=== PATIENT | female | born 1975 | race Caucasian/White ===

== ENCOUNTER 2018-10-31 07:58 | Day surgery (SDC) | payer OTHER ==
[2018-10-29 17:56] VITALS: BMI 53.2
[2018-10-31] VITALS (11 sets, daily range): BP systolic 111–158; BP diastolic 65–78; PULSE 71–82; RESP 13–22; Ht 157.5 cm; Wt 132.0 kg
[~2018-10-31] VITALS: Ht 157.5 cm; Wt 132.0 kg
[~2018-10-31 07:58] MED LIST: CIPROFLOXACIN 400 MG in D5W 200 ML IVPB SCH
[2018-10-31] MEDS ORDERED: ASCO500C7 PO (08:56)
[2018-10-31] MEDS ORDERED: FER325 PO (08:56)
--- NOTE | 2018-10-31 10:47 | HPN ---
Date/Time of Note Date/Time of Note DATE: 10/31/18 TIME: 10:47 Interval H&P Admission Note Pt. seen H&P reviewed: No system changes MINA MAGAÑA Oct 31, 2018 10:47
--- NOTE | 2018-10-31 11:22 | PREAC ---
Date/Time of Note Date/Time of Note DATE: 10/31/18 TIME: 11:20 Anesthesia Eval and Record Evaluation Time Pre-Procedure Interview DATE: 10/31/18 TIME: 11:20 Age 43 Sex female NPO: 8 hrs Preoperative diagnosis Lt ureteral stones Planned procedure Cystoscopy and removal of lt ureteral stent Past Medical History Past Medical History: Includes Cardio: HTN, Dyslipidemia GI: Morbid obesity Surgery & Anesthesia Issues No known issue Meds Anticoagulation: No Beta Hood within 24 hr: No Reason Beta Hood not given: Pt. not on B-Hood Reported Medications Ascorbic Acid* (Vitamin C*) 500 Mg Capsule.sa, 500 MG PO DAILY, CAP 10/31/18 Ferrous Sulfate* (Ferrous Sulfate*) 325 Mg Tabec, 325 MG PO TID, TAB 10/31/18 Meds reviewed: Yes Allergies Coded Allergies: ibuprofen (Verified Allergy, Unknown, 10/31/18) Allergies Reviewed: Yes Labs/Studies Labs Reviewed: Reviewed by anesthesiologist test: Negative Pre-procedure Exam Last vitals Vital Signs Date Temp Pulse Resp B/P (MAP) Pulse Ox O2 O2 Flow FiO2 Time Delivery Rate 10/31/18 98.1 82 16 111/65 95 Room Air 08:55 (80) Airway: Adequate mouth opening, Adequate thyromental dist Mallampati: Mallampati III Teeth: Normal Lung: Normal Heart: Normal ASA Physical Status ASA physical status: 3 Emergency: None Planned Anesthetic General/MAC: ETT, LMA Planned Pain Management Parenteral pain med Pre-operative Attestations Prior to commencing anesthesia and surgery, the patient was re-evaluated, there was verification of: *The patient's identity *The results of appropriate recent lab work and preoperative vital signs *The above evaluation not changing prior to induction *Anesthetic plan, risk benefits, alternative and complications discussed with patient/family; questions answered; patient/family understands, accepts and wishes to proceed. GUERLINE DELATORRE MD Oct 31, 2018 11:22
[2018-10-31] MEDS ORDERED: MIDAZOLAM 1 MG/ML 2 ML INJ ONE (11:26)
[2018-10-31] MEDS ORDERED: FENTAnyl 50 MCG/ML VIAL ONE ×2 (11:26→12:04)
[2018-10-31] MEDS ORDERED: IOHEXOL 300MG/ML 30 ML BTL INJ ONE (12:09)
[2018-10-31] MEDS ORDERED: LIDOCAINE 2% (SDV) 5 ML INJ ONE (12:22)
[2018-10-31] MEDS ORDERED: PROPOFOL 20 ML ONE (12:22)
[2018-10-31] MEDS ORDERED: CIPROFLOXACIN 400MG/D5W 200 ML ONE (12:22)
[2018-10-31] MEDS ORDERED: ETOMIDATE 20 MG INJ ONE (12:23)
[2018-10-31] MEDS ORDERED: ONDANSETRON 4 MG INJ ONE (12:23)
--- NOTE | 2018-10-31 12:43 | PAC ---
Date/Time of Note Date/Time of Note DATE: 10/31/18 TIME: 12:42 Post-Anesthesia Notes Post-Anesthesia Note Last documented vital signs Vital Signs Date Temp Pulse Resp B/P (MAP) Pulse Ox O2 O2 Flow FiO2 Time Delivery Rate 10/31/18 98.1 82 16 111/65 95 Room Air 08:55 (80) Activity: WNL Respiratory function: WNL Cardiovascular function: WNL Mental status: Baseline Pain reasonably controlled: Yes Hydration appropriate: Yes Nausea/Vomiting absent: Yes Comments BP:120/56, P:78, Spo2:100%, T:98,8 GUERLINE DELATORRE MD Oct 31, 2018 12:43
--- NOTE | 2018-10-31 12:52 | PDOCDIS ---
Discharge Instructions DIAGNOSIS Discharge Diagnosis Ureteral stone CONDITION Carolyn Patient Condition: Thais Good HOME CARE INSTRUCTIONS: Carolyn Diet Instructions: Thais Low Fat /Cholesterol ACTIVITY: Carolyn Activity Restrictions: Thais Slowly Increase Activity Carolyn Bathing Restrictions: Thais Shower FOLLOW UP/APPOINTMENTS Follow-up Plan Follow up in office in 2 weeks for removal of stent, call for date and time REFERRALS Carolyn Referring Provider: MINA Remy EVAN Oct 31, 2018 12:52
--- NOTE | 2018-10-31 12:56 | OPR ---
Date/Time of Note Date/Time of Note DATE: 10/31/18 TIME: 12:54 Operative Report Procedure Date: Oct 31, 2018 Preoperative Diagnosis Right ureteral stone Postoperative Diagnosis same Operation/Procedure Performed right rgp, exchange right stent, right ureteroscopy with holmium laser and basketing fragment Surgeon aislinn Engine Room Operator none Anesthesia Type: general Estimated Blood Loss: none Transfusion none Specimen stone Grafts/Implants none Tubes/Drains 22 cm 4.8 f stent Complications none Pt Condition Post Procedure: stable Disposition: PACU Indications impacted stone with stent Procedure Description dict [id number] MINA MAGAÑA Oct 31, 2018 12:56
[2018-10-31] MEDS ORDERED: DIPHENHYDRAMINE 50 MG INJ IV PRN (13:00)
[2018-10-31] MEDS ORDERED: MEPERIDINE 25 MG INJ IV PRN (13:00)
[2018-10-31] MEDS ORDERED: ONDANSETRON 4 MG INJ IV PRN (13:00)
[2018-10-31] MEDS ORDERED: HYDROmorphONE 1 MG/5 ML IV SYRINGE IV PRN ×2 (13:00)
[2018-10-31] MEDS ORDERED: METOCLOPRAMIDE 10 MG INJ IV PRN (13:00)
[2018-10-31] MEDS ORDERED: FENTAnyl 50 MCG/ML VIAL IV PRN (13:00)
[2018-10-31] MEDS ORDERED: ACETAMINOPHEN 500 MG TAB PO STA (14:00)
--- NOTE | 2018-10-31 15:37 | OPR ---
DATE OF OPERATION: 10/31/2018 PREOPERATIVE DIAGNOSES: 1. Impacted left mid ureteral stone. 2. Morbid obesity. POSTOPERATIVE DIAGNOSES: 1. Impacted left mid ureteral stone. 2. Morbid obesity. PROCEDURES: Cystoscopy, removal of left ureteral stent, left retrograde pyelogram, endoscopic holmiu m laser lithotripsy on 15 mm left mid ureteral stone, insertion of left ureteral stent, basket of sto ne fragment. SURGEON: Paulo Cortés MD ANESTHESIA: General. COMPLICATIONS: None. DRAINS: A 22 cm 4.8-[place] double-J ureteral stent. DESCRIPTION OF PROCEDURE: The patient was brought into the operating room and placed on the operatin g room table in supine lithotomy position. She was prepped and draped in the usual fashion after ane sthesia was induced. A timeout was undertaken. Appropriate pressure points were padded. She receiv ed preoperative antibiotic therapy. Of note, the patient has extensive morbid obesity which on limit ed positioning of placing of the table and fluoroscopy. She is noted to have a double pannus which o bscures the vulva. Rigid cystoscopy was gently undertaken after a KUB was obtained. The KUB is limi aj secondary to penetration of the x-ray beam. No stone burden could be appreciated. The previousl y placed stent was noted to be in normal anatomical position. Rigid cystoscopy was performed with a 12-degree and 30-degree angle lens. No abnormalities of the urethra could be appreciated. Bladder w as inspected in a systematic fashion. Cystoscopy was limited secondary to the morbid obesity, protru ding from the left ureteral orifice was a stent. No other abnormalities could be appreciated. The s tent was placed under graspers and brought up to the level of the urethral meatus, which allowed for a wire to be placed up to the level of the renal pelvis. The stent was removed intact. A retrograde pyelogram was undertaken which demonstrated very poorly visualized stone with marked dilation proxim al to this region. A proximal 50 mm stone was noted in the mid ureter. The ureteroscope was easily inserted into the distal ureter and up to the level of the stone where an impacted stone was noted to be growing into the sidewalls of the ureter. Endoscopic holmium laser lithotripsy was subsequently utilized of which a very hard stone was noted despite utilizing a 365 micron holmium fiber. Endoscop ic holmium laser lithotripsy was undertaken under direct vision until the complete stone was fragment ed. Fragment of the stone was sent to pathology for further evaluation, after which it was placed in to 1.9 tipless nitinol basket. No further stone burden could be appreciated. I was unable to advanc e the scope into the proximal ureter secondary to her morbid obesity. A repeat retrograde pyelogram was undertaken which did not demonstrate any filling defects within the ureter or renal pelvis and th e kidney immediately emptied the contrast. Overlying the wire, a 22 cm 4.8-[place] double-J ureteral stent was inserted with the proximal aspect of coiling within the renal pelvis and the distal aspect of coiling within the bladder. Attached to the distal end was a taper string. Proper positioning wa s confirmed with direct vision fluoroscopy and KUB. The patient's bladder was emptied and she was tr ansferred to recovery room in stable condition. She was discharged to home on [place] 5/325 one tab p. o. q.6 hours p.r.n., dispensed #30, no refill. She will follow up in the office in 2 weeks' time for cystoscopy, stent removal. Importance of timely removal of the stent, less than 3 months to avoid e ncrustation was additionally reviewed. All questions were answered. Dictated By: PAULO SIMONS/MITA Conf#: [id number] DID#: [id number]
== END 2018-10-31 14:15 | disposition home or self-care (01) ==
LOC: SDS 07:58
PROVIDERS: ATTEND Urology
DX: N20.2 Calculus of kidney with calculus of ureter (principal); E66.01 Morbid (severe) obesity due to excess calories; I10 Essential (primary) hypertension; E78.5 Hyperlipidemia, unspecified
CPT/HCPCS: 52356; 74430; 88300; C2617; J0744; J2250; J2405; J3010; Q9967; Z7512; Z7610